=== PATIENT | male | born 1950 | race Caucasian/White ===

== ENCOUNTER 2017-03-15 11:30 | Inpatient (IN) | payer MEDICARE, OTHER ==
[~2017-03-15] VITALS: Ht 172.7 cm; Wt 90.7 kg
[2017-03-15 11:47] LABS: HEMOGLOBIN 13.9 gm/dl (14.0-17.5); RED BLOOD COUNT 4.89 M/UL (4.20-5.50); WHITE BLOOD COUNT 9.2 K/UL (4.5-11.0)
[2017-03-15 12:17] LABS: BUN/CREATININE RATIO 40 (0-10)
[2017-03-15] MEDS ORDERED: LIPITOR TAB 1010 MG PO (18:13)
[2017-03-15] MEDS ORDERED: NORVASC 5 MG TAB5 MG PO (18:13)
[2017-03-15] MEDS ORDERED: QUINAPRIL-HCTZ1 EAC2 PO (18:13)
[2017-03-15] MEDS ORDERED: TRAZODONE HCL50 MG PO (18:14)
[2017-03-15] MEDS ORDERED: REQUIP0.5 MG PO (18:15)
[2017-03-15] MEDS ORDERED: METFORMIN HCL1000 MG PO (18:15)
[2017-03-15] MEDS ORDERED: BIOFLEX TABLET1 EACH PO (18:16)
[2017-03-16 04:23] LABS: HEMOGLOBIN 12.8 gm/dl (14.0-17.5); RED BLOOD COUNT 4.51 M/UL (4.20-5.50); WHITE BLOOD COUNT 8.6 K/UL (4.5-11.0)
[2017-03-16 04:40] LABS: BUN/CREATININE RATIO 30 (0-10)
[2017-03-18 04:16] LABS: BUN/CREATININE RATIO 32 (0-10)
[2017-03-18] MEDS ORDERED: ASPIR 8181 MG PO (13:55)
[2017-03-18] MEDS ORDERED: LOVENOX SY80 MG/0.8 SQ (13:56)
[2017-03-18] MEDS ORDERED: INDERAL TAB 4040 MG PO (13:57)
[2017-03-18] MEDS ORDERED: COUMADIN 5MG TAB5 MG PO (14:09)
[2017-03-18] MEDS ORDERED: METHIMAZOLE5 MG PO (14:30)
== END 2017-03-18 16:25 | disposition home or self-care (01) | DRG 308 ==
LOC: ER1 11:30 → PROG CARE 15:10 → ZEROF 15:10 → PROG CARE 17:44
PROVIDERS: Family Medicine; Internal Medicine Cardiovascular Disease; Physician Assistant; ADMIT Family Medicine
DX: I48.92 Unspecified atrial flutter (principal); E05.21 Thyrotoxicosis with toxic multinodular goiter with thyrotoxic crisis or storm; I43 Cardiomyopathy in diseases classified elsewhere; I48.91 Unspecified atrial fibrillation; E11.9 Type 2 diabetes mellitus without complications; I10 Essential (primary) hypertension; E78.5 Hyperlipidemia, unspecified; M06.9 Rheumatoid arthritis, unspecified; J98.4 Other disorders of lung; I07.1 Rheumatic tricuspid insufficiency; R09.89 Other specified symptoms and signs involving the circulatory and respiratory systems; R19.7 Diarrhea, unspecified; R11.2 Nausea with vomiting, unspecified; R79.1 Abnormal coagulation profile; T45.515A Adverse effect of anticoagulants, initial encounter; G89.29 Other chronic pain; R63.4 Abnormal weight loss; Z68.30 Body mass index [BMI] 30.0-30.9, adult; Z87.891 Personal history of nicotine dependence; Z87.898 Personal history of other specified conditions; Z79.84 Long term (current) use of oral hypoglycemic drugs; Z79.899 Other long term (current) drug therapy; Z88.8 Allergy status to other drugs, medicaments and biological substances; Z98.890 Other specified postprocedural states; Z83.3 Family history of diabetes mellitus; Z82.49 Family history of ischemic heart disease and other diseases of the circulatory system
CPT/HCPCS: ECHO; 36415; 71010; 78012; 80048; 80053; 80061; 80307; 81001; 82550; 82553; 82962; 83036; 83735; 83874; 84439; 84443; 84484; 85025; 85610; 93005; 93306; 93880; 96374; 96375; 96376; 99285; A9516; J0153; J1650; J2550

== ENCOUNTER 2022-02-08 10:08 | Emergency (ER) | payer OTHER ==
[~2022-02-08 10:08] MED LIST: ASPIR 8181 MG PO; BIOFLEX TABLET1 EACH PO; COUMADIN 5MG TAB5 MG PO; INDERAL TAB 4040 MG PO; LIPITOR TAB 1010 MG PO; LOVENOX SY80 MG/0.8 SQ; METFORMIN HCL1000 MG PO; METHIMAZOLE5 MG PO; NORVASC 5 MG TAB5 MG PO; QUINAPRIL-HCTZ1 EAC2 PO; REQUIP0.5 MG PO; TRAZODONE HCL50 MG PO
[2022-02-08 11:53] LABS: HEMOGLOBIN 15.7 gm/dl (14.0-17.5); RED BLOOD COUNT 5.15 M/UL (4.20-5.50); WHITE BLOOD COUNT 9.7 K/UL (4.5-11.0)
[2022-02-08 12:29] LABS: BUN/CREATININE RATIO 18 (0-10)
== END 2022-02-08 15:51 | disposition left against medical advice (07) ==
LOC: ER1 10:08
PROVIDERS: Physician Assistant
DX: I10 Essential (primary) hypertension (principal); R09.02 Hypoxemia; G47.30 Sleep apnea, unspecified; E11.9 Type 2 diabetes mellitus without complications; E78.5 Hyperlipidemia, unspecified
CPT/HCPCS: 36600; 71045; 71046; 80053; 81001; 82550; 82553; 82803; 83880; 84439; 84443; 84484; 85025; 85379; 93005; 99283

== ENCOUNTER → 2022-02-15 | Outpatient (CLI) | payer MEDICARE, OTHER | LOC: ECHO 09:00 | DX: R01.1 Cardiac murmur, unspecified (principal); I08.1 Rheumatic disorders of both mitral and tricuspid valves | CPT/HCPCS: ECHO; 93306 ==

== ENCOUNTER → 2022-04-02 | Outpatient (CLI) | payer MEDICARE, OTHER | LOC: HEART 5 10:02 | DX: J44.9 Chronic obstructive pulmonary disease, unspecified (principal) | CPT/HCPCS: 94060; 94729 ==

== ENCOUNTER → 2022-04-16 | Outpatient (CLI) | payer MEDICARE, OTHER | LOC: KOH-I 14:27 | DX: Z87.891 Personal history of nicotine dependence (principal); J98.11 Atelectasis | CPT/HCPCS: 71271 ==

== ENCOUNTER → 2022-06-22 | Outpatient (CLI) | payer MEDICARE, OTHER | LOC: KOH-I 06-21 08:00 | DX: R93.89 Abnormal findings on diagnostic imaging of other specified body structures (principal); J98.11 Atelectasis | CPT/HCPCS: 71250 ==